=== PATIENT | male | born 1995 | race Caucasian/White ===

== ENCOUNTER 2020-08-24 08:53 | Outpatient (CLI) | payer OTHER, SELFPAY | END 2020-08-24 08:54 | disposition home or self-care (01) | DX: Z01.10 Encounter for examination of ears and hearing without abnormal findings (principal) | CPT/HCPCS: 92552; 92556; 92567 ==

== ENCOUNTER 2022-05-12 13:07 | Outpatient (CLI) | payer OTHER, SELFPAY | END 2022-05-12 13:08 | disposition home or self-care (01) | PROVIDERS: PCP Nurse Practitioner Family; Visit Provider Nurse Practitioner Family | DX: Z01.10 Encounter for examination of ears and hearing without abnormal findings (principal) | CPT/HCPCS: 92557; 92567 ==

== ENCOUNTER 2023-07-27 07:59 | Outpatient (CLI) | payer OTHER, SELFPAY | END 2023-07-27 08:00 | disposition home or self-care (01) | LOC: ANHAUDIO 07:59 | PROVIDERS: PCP Internal Medicine; Visit Provider Internal Medicine | DX: Z01.10 Encounter for examination of ears and hearing without abnormal findings (principal) | CPT/HCPCS: 92557; 92567 ==